=== PATIENT | male | born 1980 | race Two or more races ===

== ENCOUNTER 2018-12-25 18:48 | Emergency (ER) | payer SELFPAY ==
[~2018-12-25] VITALS: Ht 170.2 cm; Wt 77.1 kg
[2018-12-25 19:18] VITALS: BP 122/66
== END 2018-12-25 22:32 | disposition home or self-care (01) ==
LOC: ER 19:05
DX: S93.402A Sprain of unspecified ligament of left ankle, initial encounter (principal); X50.0XXA Overexertion from strenuous movement or load, initial encounter; Y93.89 Activity, other specified; Y99.8 Other external cause status; Y92.89 Other specified places as the place of occurrence of the external cause
CPT/HCPCS: 73610

== ENCOUNTER 2019-10-19 11:52 | Emergency (ER) | payer SELFPAY ==
[~2019-10-19] VITALS: Ht 170.2 cm; Wt 77.1 kg
[2019-10-19 13:59] VITALS: BP 129/75
[2019-10-19] MEDS ORDERED: TETANUS-DIPTH-ACEL PERTUSSIS 0.5ML SYRG IM ONE (14:45)
[2019-10-19] MEDS ORDERED: LIDOCAINE 1% HCL (LOCAL ANESTH.) INJ 20ML MDV IJ ONE (14:45)
== END 2019-10-19 14:51 | disposition home or self-care (01) ==
LOC: ER 12:02
DX: S01.111A Laceration without foreign body of right eyelid and periocular area, initial encounter (principal); W22.8XXA Striking against or struck by other objects, initial encounter; Y93.89 Activity, other specified; Y99.8 Other external cause status; Y92.89 Other specified places as the place of occurrence of the external cause
CPT/HCPCS: 12013; 90471; 90715

== ENCOUNTER 2019-10-30 21:57 | Emergency (ER) | payer SELFPAY ==
[~2019-10-30] VITALS: Ht 170.2 cm; Wt 77.1 kg
[2019-10-30] MEDS ORDERED: NEOMYCIN-BACITRACIN-POLYM UNITDOSE PKG TOP OINT TOP ONE (23:45)
[2019-10-30 23:59] VITALS: BP 137/87
== END 2019-10-31 00:30 | disposition home or self-care (01) ==
LOC: EDBD 21:57 → ER 22:01
DX: S60.417A Abrasion of left little finger, initial encounter (principal); W26.9XXA Contact with unspecified sharp object(s), initial encounter; Y93.89 Activity, other specified; Y99.8 Other external cause status; Y92.89 Other specified places as the place of occurrence of the external cause

== ENCOUNTER 2020-06-11 16:51 | Emergency (ER) | payer MEDICAID, OTHER ==
[~2020-06-11] VITALS: Ht 170.2 cm; Wt 77.1 kg
[2020-06-11 17:41] VITALS: BP 115/79
== END 2020-06-11 21:29 | disposition home or self-care (01) ==
LOC: ER 16:51
DX: S46.911A Strain of unspecified muscle, fascia and tendon at shoulder and upper arm level, right arm, initial encounter (principal); S33.5XXA Sprain of ligaments of lumbar spine, initial encounter; M62.838 Other muscle spasm; R51.9 Headache, unspecified; V43.52XA Car driver injured in collision with other type car in traffic accident, initial encounter; Y93.89 Activity, other specified; Y92.488 Other paved roadways as the place of occurrence of the external cause; Y99.8 Other external cause status

== ENCOUNTER 2021-06-15 00:07 | Emergency (ER) | payer SELFPAY ==
[~2021-06-15] VITALS: Ht 170.2 cm; Wt 79.4 kg
[2021-06-15 03:52] VITALS: BP 144/82
== END 2021-06-15 04:02 | disposition home or self-care (01) ==
LOC: ER 00:10
DX: T16.1XXA Foreign body in right ear, initial encounter (principal); H90.11 Conductive hearing loss, unilateral, right ear, with unrestricted hearing on the contralateral side; X58.XXXA Exposure to other specified factors, initial encounter; Y93.9 Activity, unspecified; Y92.89 Other specified places as the place of occurrence of the external cause; Y99.8 Other external cause status
CPT/HCPCS: 69200